=== PATIENT | male | born 1970 | race Caucasian/White ===

== ENCOUNTER 2016-07-22 17:09 | Emergency (ER) | payer BC, OTHER ==
[~2016-07-22] VITALS: Ht 172.7 cm; Wt 79.4 kg
[2016-07-22 17:22] VITALS: BP 121/81
== END 2016-07-22 18:15 | disposition home or self-care (01) ==
LOC: ER 17:14
DX: J06.9 Acute upper respiratory infection, unspecified (principal); F17.210 Nicotine dependence, cigarettes, uncomplicated
CPT/HCPCS: 71010; 99283; A4606; Z7610

== ENCOUNTER 2016-11-02 17:50 | Emergency (ER) | payer BC ==
[~2016-11-02] VITALS: Ht 167.6 cm; Wt 75.7 kg
--- NOTE | 2016-11-02 18:00 | NUR ---
PT CAME IN FOR LEFT FLANK PAIN X 1 WEEK. NAD NOTED. VSS. DENIES FEVER, N/V/D. SEEN BY MD FOR EVAL. SAFETY AND COMFORT MEASURES PROVIDED. WILL MONITOR.
--- NOTE | 2016-11-02 18:15 | NUR ---
IV ACCESS STARTED. BLOOD DRAWN FOR LABS. PT MEDICATED ORDERED.
[2016-11-02 18:20] LABS: BASOPHILS # (AUTO) 0.2 /CMM (0.0-0.2); BASOPHILS % (AUTO) 1.2 % (0.0-2.0); EOSINOPHILS # (AUTO) 0.4 /CMM (0.0-0.7); EOSINOPHILS % (AUTO) 3.1 % (0.0-6.0); HEMATOCRIT 47 % (39-51); HEMOGLOBIN 15.7 g/dL (13.5-17.5); LYMPHOCYTES # (AUTO) 2.9 /CMM (0.8-4.8); LYMPHOCYTES % (AUTO) 22.2 % (20.0-44.0); MEAN CORPUSCULAR HEMOGLOBIN 33 PG (26.0-33.0); MEAN CORPUSCULAR HGB CONC 34 g/dl (31.0-36.0); MEAN CORPUSCULAR VOLUME 98 fL (80-96); MONOCYTES # (AUTO) 0.6 /CMM (0.1-1.30); MONOCYTES % (AUTO) 4.7 % (2.0-12.0); NEUTROPHILS # (AUTO) 8.9 /CMM (1.8-8.9); NEUTROPHILS % (AUTO) 68.8 % (43.0-81.0); PLATELET COUNT (AUTO) 177 /CMM (150-450); RED BLOOD CELL COUNT(AUTO) 4.76 MIL/uL (4.5-6.0)
[2016-11-02] MEDS ORDERED: KETOROLAC TROMETHAMINE 15 MG/ML VIAL ONE (18:20)
[2016-11-02] MEDS ORDERED: MORPHINE SULFATE INJ 4 MG/ML DISP.SYRIN ONE (18:20)
[2016-11-02] MEDS ORDERED: ONDANSETRON HCL/PF 4 MG/2 ML VIAL ONE (18:20)
[2016-11-02] MEDS ORDERED: MORPHINE SULFATE INJ 2 MG/ML DISP.SYRIN IV ONE (18:30)
[2016-11-02] MEDS ORDERED: KETOROLAC TROMETHAMINE INJ 30 MG/ML VIAL IV ONE (18:30)
[2016-11-02] MEDS ORDERED: ONDANSETRON HCL/PF 4 MG/2 ML VIAL IVP ONE (18:30)
[2016-11-02] MEDS ORDERED: IV NS 0.9% 500 ML BAG IV ONE (18:30)
--- NOTE | 2016-11-02 18:30 | NUR ---
PT TAKEN TO CT.
[2016-11-02 18:33] LABS: CALCIUM, SERUM 8.4 mg/dL (8.5-10.1); CREATININE 1.1 mg/dL (0.6-1.3); POTASSIUM 4.1 mmol/L (3.5-5.1)
[2016-11-02 18:39] LABS: ALBUMIN 3.7 g/dL (3.4-5.0); BILIRUBIN,DIRECT 0.1 mg/dL (0.0-0.2); BILIRUBIN,TOTAL 0.6 mg/dL (0.2-1.0); TOTAL PROTEIN, SERUM 6.8 g/dL (6.4-8.2)
[2016-11-02 18:55] LABS: APPEARANCE,URINE Clear (CLEAR); BILIRUBIN,URINE Negative (NEGATIVE); BLOOD, URINE Negative Ery/uL (NEGATIVE); COLOR,URINE Yellow (YELLOW); KETONES,URINE Trace (NEGATIVE); LEUKOCYTE ESTERASE ,URINE Negative (NEGATIVE); NITRITE, URINE Negative (NEGATIVE); PH,URINE 5.5 (5.0-8.0); PROTEIN,URINE Negative (NEGATIVE); UGLUCOSE Negative (NEGATIVE); UROBILINOGEN,URINE 0.2 EU/dL (0.2)
[2016-11-02 19:26] VITALS: BP 126/71
--- NOTE | 2016-11-02 19:26 | NUR ---
Patient discharged to home in stable condition. Written and verbal after care instructions given. Patient verbalizes understanding of instruction.
--- NOTE | 2016-11-02 19:26 | NUR ---
IV removed. Catheter intact and site benign. Pressure and 4x4 applied to site. No bleeding noted.
== END 2016-11-02 19:27 | disposition home or self-care (01) ==
LOC: ER 17:52
DX: R10.9 Unspecified abdominal pain (principal); J47.9 Bronchiectasis, uncomplicated; K40.20 Bilateral inguinal hernia, without obstruction or gangrene, not specified as recurrent; K59.00 Constipation, unspecified
CPT/HCPCS: 36415; 74176; 80048; 80076; 81001; 83690; 85025; 87086; 96374; 96375; 99285; A4606; J1885; J2270; J2405; J7040; Z7610; 71250-TC; 81000-TC

== ENCOUNTER 2016-11-09 09:18 | Emergency (ER) | payer BC ==
[~2016-11-09] VITALS: Ht 172.7 cm; Wt 88.5 kg
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
[2016-11-09] MEDS ORDERED: DIAZEPAM 5 MG TABLET ONE (09:24)
[2016-11-09] MEDS ORDERED: KETOROLAC TROMETHAMINE INJ 30 MG/ML VIAL ONE (09:24)
[2016-11-09] MEDS ORDERED: KETOROLAC TROMETHAMINE INJ 60 MG/2 ML VIAL IM ONE (09:30)
[2016-11-09] MEDS ORDERED: DIAZEPAM 10 MG TABLET PO ONE (09:30)
--- NOTE | 2016-11-09 09:33 | NUR ---
PATIENT MEDICATED PER MD ORDERS AND PATIENT TAKEN TO CT VIA STRETCHER .
--- NOTE | 2016-11-09 09:45 | NUR ---
PATIENT RETURNED FROM CT SCAN.
[2016-11-09] MEDS ORDERED: HYDROCODONE/APAP 10/325MG 1 EA TABLET ONE (10:57)
[2016-11-09] MEDS ORDERED: ONDANSETRON 4 MG TAB.RAPDIS ONE (10:58)
--- NOTE | 2016-11-09 10:59 | NUR ---
BEHAVIOUR SUPPORT TEACHER AT BEDSIDE. PATIENT STILL C/O PAIN, MD AWARE. NEW ORDERS PROVIDED. WILL IMPLEMENT.
[2016-11-09] MEDS ORDERED: HYDROCODONE/APAP 10/325MG 1 EA TABLET PO ONE (11:00)
[2016-11-09] MEDS ORDERED: ONDANSETRON 4 MG TAB.RAPDIS SL ONE (11:00)
--- NOTE | 2016-11-09 11:17 | NUR ---
PATIENT TAKEN TO CT VIA STRETCHER.
--- NOTE | 2016-11-09 11:28 | NUR ---
PATIENT RETURNED FROM CT IN STABLE CONDITION.
[2016-11-09 12:18] VITALS: BP 127/68
--- NOTE | 2016-11-09 12:21 | NUR ---
Patient discharged to home in stable condition. Written and verbal after care instructions given. Patient verbalizes understanding of instruction.
== END 2016-11-09 12:21 | disposition home or self-care (01) ==
LOC: ER 09:19
DX: S13.4XXA Sprain of ligaments of cervical spine, initial encounter (principal); S70.02XA Contusion of left hip, initial encounter; V59.69XA Unspecified occupant of pick-up truck or van injured in collision with other motor vehicles in traffic accident, initial encounter; Y93.89 Activity, other specified; Y92.488 Other paved roadways as the place of occurrence of the external cause; Y99.8 Other external cause status
CPT/HCPCS: 70450; 72125; 73503; 96372; 99284; A4606; J1885; Q0162; Z7610; 73502

== ENCOUNTER 2016-12-30 13:09 | Emergency (ER) | payer BC, OTHER ==
[~2016-12-30] VITALS: Ht 170.2 cm; Wt 76.2 kg
--- NOTE | 2016-12-30 13:10 | NUR ---
BIB SELF, SENT BY PMD DR SOLIZ DUE TO ABNORMAL MRI, NAD NOTED, VSS, RESP EVEN AND UNLABORED. RESP EVEN AND UNLABORED. EKG DONE,WAITING FOR MD BARRETT, AT BS
--- NOTE | 2016-12-30 13:50 | NUR ---
LAC #18 IV ACCESS. BLOOD SAMPLE COLLECTED SENT TO LAB
--- NOTE | 2016-12-30 13:50 | NUR ---
EKG IN PROGRESS
[2016-12-30 13:53] LABS: BASOPHILS # (AUTO) 0.1 /CMM (0.0-0.2); BASOPHILS % (AUTO) 0.7 % (0.0-2.0); EOSINOPHILS # (AUTO) 0.1 /CMM (0.0-0.7); EOSINOPHILS % (AUTO) 0.8 % (0.0-6.0); HEMATOCRIT 46 % (39-51); HEMOGLOBIN 15.6 g/dL (13.5-17.5); LYMPHOCYTES # (AUTO) 2.1 /CMM (0.8-4.8); LYMPHOCYTES % (AUTO) 18.7 % (20.0-44.0); MEAN CORPUSCULAR HEMOGLOBIN 33 PG (26.0-33.0); MEAN CORPUSCULAR HGB CONC 34 g/dl (31.0-36.0); MEAN CORPUSCULAR VOLUME 97 fL (80-96); MONOCYTES # (AUTO) 0.7 /CMM (0.1-1.30); MONOCYTES % (AUTO) 6.1 % (2.0-12.0); NEUTROPHILS # (AUTO) 8.3 /CMM (1.8-8.9); NEUTROPHILS % (AUTO) 73.7 % (43.0-81.0); PLATELET COUNT (AUTO) 172 /CMM (150-450); RED BLOOD CELL COUNT(AUTO) 4.74 MIL/uL (4.5-6.0); WHITE BLOOD COUNT (AUTO) 11.3 K/uL (4.3-11.0)
[2016-12-30 14:02] LABS: CALCIUM, SERUM 8.7 mg/dL (8.5-10.1); CARBON DIOXIDE 28 mmol/L (21-32); CHLORIDE 105 mmol/L (98-107); CREATININE 0.9 mg/dL (0.6-1.3); GLUCOSE 125 mg/dL (74-106); SODIUM SERUM 139 mmol/L (136-145); UREA NITROGEN, BLOOD 17 mg/dL (7-18)
[2016-12-30 14:06] LABS: INR 1.1 (0.87-1.13); PROTHROMBIN TIME 11.4 SECS (9.5-12.7)
[2016-12-30 14:11] LABS: TROPONIN I < 0.017 ng/mL (0.00-0.056)
[2016-12-30 14:47] VITALS: BP 128/56
== END 2016-12-30 14:50 | disposition home or self-care (01) ==
LOC: ER 13:12
DX: R07.89 Other chest pain (principal); F41.9 Anxiety disorder, unspecified; Z87.891 Personal history of nicotine dependence
CPT/HCPCS: 36415; 71010; 80048; 84484; 85025; 85730; 93005; 99285; 99406; A4606; Z7610

== ENCOUNTER → 2018-08-31 | Emergency (ER) | payer OTHER ==
[~2018-08-31] VITALS: Ht 172.7 cm; Wt 76.2 kg
[~2018-08-31] MED LIST: CT SWABBABLE VALVE TRANS SET 1 EA INFUS.SET MC ONE; IOHEXOL-300 100 ML VIAL IV ONE; IV NS 0.9% 250 ML IV ONE; PIPERACILLIN /TAZOBACTAM 3.375 G VIAL IV ONE; VANCOMYCIN 1 GM VIAL ONE; VANCOMYCIN 1 GM in IV D5W 250 ML IV ONE
--- NOTE | 2018-08-31 10:45 | NUR ---
CAME IN FOR WORSENING GROIN AREA PAIN FROM POSSIBLE ABSCESS., "ONGOING FOR MONTHS AND NOW I CAN'T WALK", TO ER BED 3, HOOKED TO MONITOR, CHANGED TO GOWN, PROVIDED W WARM BLANKET, PT AOX4 , NOT IN DISTRESS, AWAITING MD BARRETT
--- NOTE | 2018-08-31 11:20 | NUR ---
DR MORALES AT BEDSIDE FOR EVAL.
[2018-08-31 11:40] LABS: BASOPHILS # (AUTO) 0.1 /CMM (0.0-0.2); BASOPHILS % (AUTO) 0.6 % (0.0-2.0); EOSINOPHILS % (AUTO) 0.4 % (0.0-6.0); HEMATOCRIT 43 % (39-51); HEMOGLOBIN 14.5 g/dL (13.5-17.5); LYMPHOCYTES # (AUTO) 1.4 /CMM (0.8-4.8); LYMPHOCYTES % (AUTO) 12.1 % (20.0-44.0); MEAN CORPUSCULAR HGB CONC 33 g/dl (31.0-36.0); MEAN CORPUSCULAR VOLUME 96 fL (80-96); MONOCYTES # (AUTO) 0.9 /CMM (0.1-1.30); MONOCYTES % (AUTO) 8.1 % (2.0-12.0); NEUTROPHILS # (AUTO) 9.2 /CMM (1.8-8.9); NEUTROPHILS % (AUTO) 78.8 % (43.0-81.0); PLATELET COUNT (AUTO) 218 /CMM (150-450); RED BLOOD CELL COUNT(AUTO) 4.52 MIL/uL (4.5-6.0); WHITE BLOOD COUNT (AUTO) 11.7 K/uL (4.3-11.0)
[2018-08-31 11:50] LABS: CALCIUM, SERUM 8.7 mg/dL (8.5-10.1); POTASSIUM 4.2 mmol/L (3.5-5.1)
[2018-08-31] MEDS: PIPERACILLIN /TAZOBACTAM 3.375 G in IV D5W 50 ML IV SCH ×5 (15:26→18:41)
--- NOTE | 2018-08-31 15:42 | NUR ---
CALLED [facility] FOR TRANSFER. FAXING FACE SHEET, WAITING FOR ACCEPTENCE
--- NOTE | 2018-08-31 18:42 | NUR ---
ORDERED TIME ERRONEOUSLY FOR ZOSYN 3.375G IN 50ML D5W, GIVEN DOSE AT 1613
--- NOTE | 2018-08-31 19:29 | NUR ---
REPORT GIVEN TO EMMANUEL العراقي FOR [facility]
--- NOTE | 2018-08-31 20:07 | NUR ---
[facility] WILL BE TRANSPORTING, ETA OF 2129. WAITING FOR CALL FROM [employer] [facility] FOR [facility] TO WHAT BED AND WHO TO GIVE REPORT TO.
--- NOTE | 2018-08-31 20:34 | NUR ---
PT GOING TO [facility], GIVE REPORT TO MACEY
[2018-08-31 20:48] VITALS: BP 136/58
--- NOTE | 2018-08-31 20:56 | NUR ---
REPORT GIVEN TO MACEY AT [facility]. PT AWAKE AND ALERT AND AWARE OF TRANSPO. VSS.
--- NOTE | 2018-08-31 22:15 | NUR ---
PT WAS TRANSFERRED TO [facility] VIA [facility] IN STABLE CONDITION. REPORT GIVENT O PARAMEDICS
== END | disposition short-term general hospital (02) ==
LOC: ER 10:34
DX: N49.2 Inflammatory disorders of scrotum (principal); L03.315 Cellulitis of perineum; Z98.890 Other specified postprocedural states
CPT/HCPCS: 36415; 72193; 80048; 83605; 85025; 96365; 96368; 99291; J2543; J3370; J7050; J7060; Q9967

== ENCOUNTER 2019-01-01 17:11 | Emergency (ER) | payer OTHER ==
[~2019-01-01] VITALS: Ht 175.3 cm; Wt 76.2 kg
[2019-01-01] MEDS ORDERED: ONDANSETRON HCL/PF 4 MG/2 ML VIAL ONE (17:48)
[2019-01-01] MEDS ORDERED: KETOROLAC TROMETHAMINE INJ 30 MG/ML VIAL ONE (17:48)
[2019-01-01] MEDS ORDERED: CYCLOBENZAPRINE 10 MG TABLET ONE (17:48)
[2019-01-01 17:49] LABS: BASOPHILS % (AUTO) 0.5 % (0.0-2.0); EOSINOPHILS % (AUTO) 1.1 % (0.0-6.0); HEMATOCRIT 47 % (39-51); HEMOGLOBIN 15.9 g/dL (13.5-17.5); LYMPHOCYTES # (AUTO) 2.2 /CMM (0.8-4.8); LYMPHOCYTES % (AUTO) 23.6 % (20.0-44.0); MEAN CORPUSCULAR HGB CONC 34 g/dl (31.0-36.0); MEAN CORPUSCULAR VOLUME 96 fL (80-96); MONOCYTES # (AUTO) 0.5 /CMM (0.1-1.30); MONOCYTES % (AUTO) 5.4 % (2.0-12.0); NEUTROPHILS # (AUTO) 6.4 /CMM (1.8-8.9); NEUTROPHILS % (AUTO) 69.4 % (43.0-81.0); PLATELET COUNT (AUTO) 182 /CMM (150-450); RED BLOOD CELL COUNT(AUTO) 4.92 MIL/uL (4.5-6.0); WHITE BLOOD COUNT (AUTO) 9.2 K/uL (4.3-11.0)
[2019-01-01] MEDS ORDERED: KETOROLAC TROMETHAMINE INJ 30 MG/ML VIAL IV ONE (18:00)
[2019-01-01] MEDS ORDERED: IV NS 0.9% 1,000 ML BAG IV ONE (18:00)
[2019-01-01] MEDS ORDERED: ONDANSETRON HCL/PF 4 MG/2 ML VIAL IVP ONE (18:00)
[2019-01-01] MEDS ORDERED: CYCLOBENZAPRINE 10 MG TABLET PO ONE (18:00)
[2019-01-01 18:19] LABS: CALCIUM, SERUM 8.9 mg/dL (8.5-10.1); CREATININE 0.9 mg/dL (0.6-1.3); POTASSIUM 3.9 mmol/L (3.5-5.1)
[2019-01-01 18:24] LABS: ALBUMIN 3.7 g/dL (3.4-5.0); BILIRUBIN,DIRECT 0.2 mg/dL (0.0-0.2); TOTAL PROTEIN, SERUM 7.6 g/dL (6.4-8.2)
--- NOTE | 2019-01-01 19:35 | NUR ---
urine collected and sent to the lab
[2019-01-01 19:43] LABS: APPEARANCE,URINE Clear (CLEAR); BILIRUBIN,URINE SMALL (NEGATIVE); BLOOD, URINE Negative Ery/uL (NEGATIVE); COLOR,URINE Yellow (YELLOW); KETONES,URINE Negative (NEGATIVE); LEUKOCYTE ESTERASE ,URINE Negative (NEGATIVE); NITRITE, URINE Negative (NEGATIVE); PH,URINE 5.5 (5.0-8.0); PROTEIN,URINE Negative (NEGATIVE); UGLUCOSE Negative (NEGATIVE); UROBILINOGEN,URINE 0.2 EU/dL (0.2)
--- NOTE | 2019-01-01 20:12 | NUR ---
IV removed. Catheter intact and site benign. Pressure and 4x4 applied to site. No bleeding noted. Patient discharged to home in stable condition. Rx and Written and verbal after care instructions given. Patient verbalizes understanding of instruction.
[2019-01-01 20:14] VITALS: BP 119/69
== END 2019-01-01 20:14 | disposition home or self-care (01) ==
LOC: ER 17:14
DX: R10.9 Unspecified abdominal pain (principal); Z98.890 Other specified postprocedural states
CPT/HCPCS: 36415; 80048; 80076; 81001; 85025; 96374; 96375; 99283; J1885; J2405; J7030 ×2; 81000-TC